=== PATIENT | male | born 1995 | race Caucasian/White ===

== ENCOUNTER 2020-11-24 14:16 | Emergency (ER) | payer OTHER ==
[~2020-11-24] VITALS: Ht 167.6 cm; Wt 51.8 kg
[2020-11-24 14:30] VITALS: BP 114/71
--- NOTE | 2020-11-24 15:07 | NUR ---
PT TO CT
--- NOTE | 2020-11-24 15:16 | NUR ---
PT RETURNED FROM CT
--- NOTE | 2020-11-24 16:11 | NUR ---
Patient given discharge instructions and Rx, they have confirmed that they understand the instructions. Patient ambulatory with steady gait. NAD, all questions answered appropriately, denies additional needs at this time. No personal belongings left in room after discharge.
== END 2020-11-24 16:22 | disposition home or self-care (01) ==
LOC: ED 15:58
DX: S00.531A Contusion of lip, initial encounter (principal); Y04.8XXA Assault by other bodily force, initial encounter; Y93.89 Activity, other specified; Y92.410 Unspecified street and highway as the place of occurrence of the external cause; Y99.8 Other external cause status
CPT/HCPCS: 70486; 99284